=== PATIENT | male | born 1995 | race African-American/Black ===

== ENCOUNTER 2019-06-02 19:20 | Emergency (ER) | payer OTHER ==
--- NOTE | 2019-06-02 19:33 | PDOC ---
Rapid Medical Evaluation Chief Complaint: Chest Pain Time Seen by Provider: 06/02/19 19:29 Medical Evaluation: 06/02/19 19:29 Pt c/o: n/v/d x 3-4 days, recent tx for GC. Mild burning with urination Pt on brief exam: tachy at 101, dry oral mucosa, no abd tenderness Pt ordered for: ua, u cx, zofran Pt to proceed to the ED Discharge Disposition - Diagnosis Nausea and vomiting - Referrals - Patient Instructions - Post Discharge Activity
[2019-06-02 19:35] VITALS: BP 113/75; PULSE 101; TEMP 98.2; BMI 19.2
[2019-06-02] MEDS ORDERED: ONDANSETRON *ODT* 4 MG TABLET SL ONE (19:38)
[2019-06-02] MEDS ORDERED: LACTATED RINGERS SOLUTION 1000 ML INFUS.BAG IV ONE (20:28)
[2019-06-02] MEDS ORDERED: ONDANSETRON 4 MG/2 ML VIAL IVPB ONE (20:32)
[2019-06-02] MEDS ORDERED: ONDANSETRON 4 MG/2 ML VIAL ONE ×2 (20:33→22:09)
[2019-06-02 20:56] LABS: BASO % 0.4 % (0-2.0); EOS % 0.6 % (0-4.5); HEMATOCRIT 43.2 % (35.4-49); HEMOGLOBIN 14.7 GM/dL (11.7-16.9); LYMPH % 20.6 % (8-40); MCH 32.4 pg (25.7-33.7); MEAN CELL VOLUME 95.3 fl (80-96); MEAN PLT VOLUME 7.1 fl (7.5-11.1); MONO % 8.3 % (3.8-10.2); NEUT % 70.1 % (42.8-82.8); PLATELET COUNT 329 K/MM3 (134-434); RBC 4.54 M/mm3 (4.00-5.60); RDW 12.6 % (11.9-15.9)
--- NOTE | 2019-06-02 21:34 | PDOC ---
Attending Attestation - Resident Resident Name: CarltonRicardo - ED Attending Attestation I have performed the following: I have examined & evaluated the patient, The case was reviewed & discussed with the resident, I agree w/resident's findings & plan, Exceptions are as noted - HPI HPI: 06/02/19 21:44 Mr. Olvera is a 23 yo M who presents to the ER due to nausea and vomiting HE has a history of HIV (VL UD, on HAART) found to have Gonorrhea, treated with Ceftriaxone and Azithromycin Since taking those medications he had noted abdominal pain He has not been able to take his HAART medications He has also noted watery diarrhea - 4-6 times each day - non bloody, non mucoid He has noted left sided abdominal pain which is worse with movement and deep breath He also noted nausea and vomiting - non bloody, non bilious (+) urinary frequency, dysuria (+) chills - Physicial Exam PE: 06/02/19 21:33 GENERAL: The patient is in no acute distress. ENT: Ears normal, nares patent, oropharynx clear without exudates. Moist mucous membranes. NECK: Normal range of motion, supple LUNGS: Breath sounds equal, clear to auscultation bilaterally. No wheezes, and no crackles. HEART: Tachycardiac, regular rhythem, no murmur ABDOMEN: Hyperactive bowel sounds, non tender, no involuntary guarding, no rebound EXTREMITIES: Normal range of motion, no edema. NEUROLOGICAL: Cranial nerves II through XII grossly intact. Normal speech. No focal neurological deficits. SKIN: Warm, Dry, normal turgor, no rashes or lesions noted. 06/02/19 21:49 - Medical Decision Making 06/02/19 21:50 DD: DD: Appendicitis, colitis, enteritis, gastroenteritis, obstruction, cholecystitis, gastritis, gastric ulcer, diverticulitis Will do: labs, IVF, Zofran, Bentyl, Pepcid, Re Assess 06/02/19 23:44 Laboratory Tests 06/02/19 06/02/19 06/02/19 20:30 20:30 22:46 WBC 10.0 Hgb 14.7 Hct 43.2 Plt Count 329 BUN 12.0 Creatinine 1.1 Urine Blood Negative Urine Nitrite Negative Ur Leukocyte Esterase Negative Pt po challenged He tolerated this with no difficulty Twelve-lead EKG was performed and reviewed by me. There is normal sinus rhythm with a normal rate of 70 bpm. The axis is normal. The intervals are normal. There are no ST or T wave abnormalities. Impression: Normal twelve-lead EKG Will plan to d/c home with malik
[2019-06-02 21:40] LABS: ALBUMIN 3.8 g/dl (3.4-5.0); BILIRUBIN,TOTAL 0.6 mg/dL (0.2-1); CALCIUM 8.7 mg/dL (8.5-10.1); CREATININE 1.1 mg/dL (0.55-1.3); POTASSIUM 3.6 mmol/L (3.5-5.1); TOT PROT 7.4 g/dl (6.4-8.2)
[2019-06-02] MEDS ORDERED: DICYCLOMINE HCL 20 MG/2 ML AMPUL IM ONE (21:54)
[2019-06-02] MEDS ORDERED: SODIUM CHLORIDE 0.9% 500 ML INFUS.BAG IV ONE (21:54)
[2019-06-02] MEDS ORDERED: ONDANSETRON 4 MG/2 ML VIAL IVPUSH ONE (21:54)
--- NOTE | 2019-06-02 22:59 | PDOC ---
History of Present Illness - General Chief Complaint: Nausea/Vomiting Stated Complaint: CHEST PAIN/SOB Time Seen by Provider: 06/02/19 19:29 History Source: Patient Exam Limitations: No Limitations Past History - Past Medical History Allergies/Adverse Reactions: Allergies Allergy/AdvReac Type Severity Reaction Status Date / Time No Known Allergies Allergy Verified 06/02/19 20:21 Home Medications: Ambulatory Orders Abacavir/Dolutegravir/Lamivudi [Triumeq Tablet] 1 each PO DAILY 06/02/19 Ondansetron [Zofran *Odt*] 4 mg SL TID #16 od.tablet 06/02/19 COPD: No - Immunization History Immunization Up to Date: No - Psycho Social/Smoking Cessation Hx Smoking History: Never smoked Hx Alcohol Use: No Drug/Substance Use Hx: No Review of Systems - Review of Systems Able to Perform ROS?: Yes Is the patient limited Kinyarwanda proficient: No *Physical Exam - Vital Signs Last Vital Signs Temp Pulse Resp BP Pulse Ox 98.2 F 101 H 17 113/75 99 06/02/19 19:30 06/02/19 19:30 06/02/19 19:30 06/02/19 19:30 06/02/19 19:30 ED Treatment Course - LABORATORY CBC & Chemistry Diagram: 06/02/19 20:30 06/02/19 20:30 - ADDITIONAL ORDERS Additional order review: Laboratory Results 06/02/19 20:30 Sodium 139 Potassium 3.6 Chloride 108 H Carbon Dioxide 27 Anion Gap 5 L BUN 12.0 Creatinine 1.1 Est GFR (CKD-EPI)AfAm 110.63 Est GFR (CKD-EPI)NonAf 95.45 Random Glucose 86 Calcium 8.7 Total Bilirubin 0.6 AST 21 ALT 23 Alkaline Phosphatase 94 Total Protein 7.4 Albumin 3.8 Lipase 89 06/02/19 20:30 RBC 4.54 MCV 95.3 MCHC 34.0 RDW 12.6 MPV 7.1 L Neutrophils % 70.1 Lymphocytes % 20.6 Monocytes % 8.3 Eosinophils % 0.6 Basophils % 0.4 - Medications Given in the ED: ED Medications Discontinued Medications Generic Name Dose Route Start Last Admin Trade Name Freq PRN Reason Stop Dose Admin Lactated Ringer's 1,000 ml 06/02/19 20:28 06/02/19 20:54 Lactated Ringers Solution IV 06/02/19 20:29 1,000 ml ONCE ONE Administration Ondansetron HCl 4 mg 06/02/19 19:38 06/02/19 21:10 Zofran Odt - SL 06/02/19 19:39 Not Given ONCE ONE Ondansetron HCl 4 mg 06/02/19 20:32 06/02/19 20:54 Zofran Injection IVPB 06/02/19 20:33 4 mg ONCE ONE Administration Ondansetron HCl 4 mg 06/02/19 21:54 06/02/19 22:15 Zofran Injection IVPUSH 06/02/19 21:55 4 mg ONCE ONE Administration Sodium Chloride 1,000 ml 06/02/19 21:54 06/02/19 22:15 Normal Saline - IV 06/02/19 21:55 1,000 ml ONCE ONE Administration Medical Decision Making - Medical Decision Making 06/02/19 23:33 HPI: 23M PMH HIV (undetectable VL on HAART) presenting with 1 week of n/v/d and inability to tolerate PO after receiving abx for Gn. Endorses pleuritic left sided abdominal pain worse w/ movement. Nbnb vomiting. Watery nonbloody diarrhea 4-6 times a day. PMH: HIV on HAART, Gn s/p abx NKDA ROS: CONSTITUTIONAL: Endorses chills last week, no current f/c RESP: Denies sob CARD: Endorses pleuritic chest and abdominal pain worse w/ movement. No resting chest pain. GI: Endorses abdominal pain, n/v/d. Denies blood in vomitus or stool. : Endorses dysuria PE: GEN: Well appearing, NAD. AAOx3 HEENT: NC/AT. No facial asymmetry. Moist mucous membranes. Normal voice. Supple neck w/ FROM. CV: S1/S2, RRR, no m/r/g LUNG: CTAB, no wheezes, crackles, rales, rhonchi. GI: +mild TTP on left side and hyperactive BS. soft, nd, no guarding, no rebound. No masses. EXTREMITIES: No obvious deformities of all extremities. SKIN: warm, dry, normal turgor PSYCH: normal mood and affect MDM: 23M HIV on HAART presenting with n/v/d after receiving abx for Gn. - Zofran - Fluids - Bentyl - CBC, CMP, UA - reassess / PO challenge 06/02/19 23:59 Patient tolerated solid food and liquids, feeling better, w/o nausea EKG did not show prolonged QTc @ 399 Discharged home w/ close PCP f/u and zofran Discharge - Discharge Information Problems reviewed: Yes Clinical Impression/Diagnosis: Nausea and vomiting Qualifiers: Vomiting type: unspecified Vomiting Intractability: non-intractable Qualified Code(s): R11.2 - Nausea with vomiting, unspecified Condition: Improved Disposition: HOME - Additional Discharge Information Prescriptions: Ondansetron [Zofran *Odt*] 4 mg SL TID #16 od.tablet - Follow up/Referral Referrals: Ariela Delgado [Primary Care Provider] - - Patient Discharge Instructions Patient Printed Discharge Instructions: DI for Vomiting -- Adult Additional Instructions: You were seen and treated in the Emergency Department. We have sent a prescription to your pharmacy for nausea, please pick it up and take as directed. Follow up with your primary care doctor in the next 2-4 days. Immediately return to the ED if you experience any of the following: - severe vomiting - severe diarrhea - blood in the stool or vomit - high fever - worsening pain - ANYTHING that concerns you - Post Discharge Activity
[2019-06-02 23:01] LABS: HYALINE CASTS 12 /lpf (0-8); PH,URINE 5.5 (5.0-8.0); URINE APPEARANCE CLEAR; URINE BACTERIA 1.2 /hpf (NEGATIVE); URINE BILIRUBIN NEGATIVE (NEGATIVE); URINE COLOR YELLOW; URINE GLUCOSE (UA) NEGATIVE (NEGATIVE); URINE KETONE 1+ (NEGATIVE); URINE LEUK ESTERASE NEGATIVE (NEGATIVE); URINE NITRITE NEGATIVE (NEGATIVE); URINE PROTEIN 1+ (NEGATIVE); URINE RBC 0 /hpf (0-4); URINE UROBILINOGEN 0.2 mg/dL (0.2-1.0); URINE WBC 3 /hpf (0-5)
--- NOTE | 2019-06-03 14:56 | EKG ---
Test Reason : Blood Pressure : / mmHG Vent. Rate : 070 BPM Atrial Rate : 070 BPM P-R Int : 166 ms QRS Dur : 080 ms QT Int : 370 ms P-R-T Axes : 080 070 065 degrees QTc Int : 399 ms NORMAL SINUS RHYTHM WITH SINUS ARRHYTHMIA EARLY REPOLARIZATION NORMAL ECG NO PREVIOUS ECGS AVAILABLE Confirmed by Kaitlin Burns ([id number]) on 06/03/2019 2:56:31 PM Referred By: Confirmed By:Kaitlin Burns
== END 2019-06-03 00:05 | disposition home or self-care (01) ==
LOC: JER 19:20 → JERFT 19:20 → JER 06-03 00:05
PROC: 3E023GC Introduction of Other Therapeutic Substance into Muscle, Percutaneous Approach (ICD-10-PCS; principal; 2019-06-02)
PROC: 3E033GC Introduction of Other Therapeutic Substance into Peripheral Vein, Percutaneous Approach (ICD-10-PCS; 2019-06-02)
DX: R11.2 Nausea with vomiting, unspecified (principal); Z21 Asymptomatic human immunodeficiency virus [HIV] infection status; R30.0 Dysuria; Z86.19 Personal history of other infectious and parasitic diseases
CPT/HCPCS: 36415; 80053; 81003; 83690; 85025; 87086; 87491; 87591; 93005; 93010; 96372; 96374; 96376; 99283-25